=== PATIENT | male | born 1990 | race Two or more races ===

== ENCOUNTER 2023-12-10 07:27 | Emergency (ER) | payer OTHER ==
[~2023-12-10] VITALS: Ht 170.2 cm; Wt 90.9 kg
[2023-12-10 10:09] VITALS: BP 142/87; PULSE 63; RESP 19; TEMP 98.2; O2SAT 97
[2023-12-10] MEDS: HYDROcodone-ACET 5/325MG TAB PO ONE (10:13)
[2023-12-10 10:23] LABS: Chloride 108 mmol/L (98-107); Potassium 4.1 mmol/L (3.5-5.1); Sodium 140 mmol/L (136-145)
[2023-12-10 10:24] LABS: Anion Gap 6 (5-15); Basophils # (auto) 0 10 ^3/uL (0-0.2); Basophils % (auto) 0.2 % (0.0-2.0); Calcium 9.5 mg/dL (8.5-10.1); Carbon Dioxide 26 mmol/L (20-30); Eosinophils # (auto) 0 10 ^3/uL (0-0.8); Eosinophils % (auto) 0.2 % (0.0-7.0); Hematocrit 44.1 % (41.0-53.0); Lymphocytes # (auto) 0.6 10 ^3/uL (0.4-5.4); Lymphocytes % (auto) 4.9 % (10.0-50.0); Mean Corpuscular Hemoglobin 29.3 pg (28.0-32.0); Mean Corpuscular Hgb Conc. 34.1 g/dL (32.0-36.0); Mean Corpuscular Volume 85.7 fL (80.0-100.0); Monocytes # (auto) 0.7 10 ^3/uL (0-1.3); Monocytes % (auto) 5.6 % (0.0-12.0); Neutrophils # (auto) 11.6 10 ^3/uL (1.6-8.6); Neutrophils % (auto) 89.1 % (37.0-80.0); Nucleated Red Blood Cells % 0.1 %; Red Blood Cells 5.14 10^6/uL (4.5-5.90); Red Cell Distribution Width 13.3 % (11.8-14.3)
[2023-12-10 10:29] LABS: BUN/Creatinine Ratio 12.6 (10.0-20.0); Blood Urea Nitrogen 11 mg/dL (9-23); Glucose 122 mg/dL (74-106)
[2023-12-10] MEDS ORDERED: CYCL-837 PO (11:42)
[2023-12-10] MEDS ORDERED: IBUP1TAB5 PO (11:42)
== END 2023-12-10 11:53 | disposition home or self-care (01) ==
LOC: EDBD 07:27 → ER 07:27
DX: M54.6 Pain in thoracic spine (principal); R51.9 Headache, unspecified; Z88.8 Allergy status to other drugs, medicaments and biological substances; Z79.899 Other long term (current) drug therapy; Z91.09 Other allergy status, other than to drugs and biological substances; V98.8XXA Other specified transport accidents, initial encounter; Y93.I9 Activity, other involving external motion; Y92.89 Other specified places as the place of occurrence of the external cause; Y99.8 Other external cause status
CPT/HCPCS: 36415; 70450; 72040; 80048; 85025